=== PATIENT | male | born 1940 | race Caucasian/White ===

== ENCOUNTER 2018-05-26 12:20 | Inpatient (IN) | payer MEDICARE ==
[2018-05-26 12:42] LABS: INR-International Normal Ratio 1.1; PTT 24.2 SEC (22.9-36.1); Prothrombin Time 13.8 SEC (12.0-14.7)
[2018-05-26 12:55] LABS: #Eosinphils 0.2 thou/uL (0.0-0.7); #Lymphocytes 1.4 thou/uL (1.20-3.40); #Monocytes 0.4 thou/uL (0.11-0.59); %Eosinophils 1.8 % (0.0-10.0); %Lymphocytes 12.7 % (21.0-51.0); %Monocytes 3.4 % (0.0-10.0); %Neutrophils 82.2 % (42.0-75.0); Hemoglobin 15.5 g/dL (14.0-18.0); Mean Corpuscular HGB CONC 32.8 g/dL (32.0-36.0); Mean Corpuscular Hemoglobin 32.5 pg (27.0-31.0); Mean Corpuscular Volume 99.2 fL (78.0-98.0); Mean Platelet Volume 8.3 fL (7.4-10.4); Platelet Count 175 thou/uL (130-400); RBC Distribution Width 13.1 % (11.5-14.5); Red Blood Cell (RBC) Count 4.77 mill/uL (4.70-6.10)
[2018-05-26] MEDS ORDERED: ISOVUE-370 76%-LOCM 1 ML ONE (15:21)
[2018-05-26 17:05] VITALS: BMI 18.8
[2018-05-26] MEDS: Nicotine 14 MG PATCH TD SCH (18:05)
[2018-05-26] MEDS ORDERED: Atorvastatin Calcium 40 MG TAB PO SCH (21:00)
[2018-05-26] MEDS: Heparin 5,000 UNITS/ML VIAL SC SCH (21:19)
--- NOTE | 2018-05-27 00:30 | HP ---
CHIEF COMPLAINT: Right-sided weakness. HISTORY OF PRESENT ILLNESS: The patient is a 78-year-old male with history of stroke with some left peripheral vision which was affected, who presented to the hospital, with complaints of sudden onset of right-sided weakness. The patient stated that this morning, he noticed that his right arm felt weak and he dropped his dentures. He also complained of some shakiness in both hands, right worse than the left. The patient also stated that he was confused. Family stated the patient was confused and was unable to get words out and also had a right facial droop. The patient at this time did come into the [facility] in which he had a CT head, which was negative. However, due to his allergy to iodine, he was given a prep and was transferred here. He did undergo a CTA which did not indicate any acute abnormalities at this time. His NIH score was 2. PAST MEDICAL HISTORY: He has a history of: 1. CAD, status post CABG. 2. COPD. 3. Hyperlipidemia. 4. Hypothyroidism. 5. CVA. PAST SURGICAL HISTORY: The patient has had a surgical history of: 1. CABG, four vessel. 2. Thyroidectomy. 3. The patient also has an ICD placed. SOCIAL HISTORY: The patient denies any alcohol use. However, he continues to smoke half a pack a day. Denies any drug use. He is a full code. ALLERGIES: HE IS ALLERGIC TO IODINE AND VICODIN. MEDICATIONS: The patient does not have the whole list. However, he takes: 1. Levothyroxine 137 mcg daily. 2. Clopidogrel 75 mg daily. 3. Atorvastatin 40 mg daily. 4. Aspirin 81 mg daily. REVIEW OF SYSTEMS: All negative except for the ones mentioned above in the HPI. FAMILY HISTORY: Parents had a history of heart disease and strokes. PHYSICAL EXAMINATION: VITAL SIGNS: Are as the following: Temperature of 98.7, oxygen 100% on room air, respirations 16, pulse of 65, blood pressure of 130/67. GENERAL: He is awake, alert, and oriented x3. Does not appear in any distress. CV: S1 and S2 present. No murmurs, rubs, or gallops. LUNGS: Mild expiratory wheezing to bilateral upper lung area. ABDOMEN: Soft and nontender. Bowel sounds are present x2. NEUROVASCULAR: He has got 4/5 bilateral upper extremity and 5/5 bilateral lower extremity. Sensation is intact, upper bilateral upper and bilateral lower. Ihlhaf-wi-zvsu, byso-wv-zvsw intact. According to the patient's family, his speech has dramatically improved. LABORATORY RESULTS: Are as following: WBCs of 11.0, hemoglobin of 15.5, hematocrit of 47.3, platelets of 175. Sodium of 139, potassium of 4.3, BUN of 19, creatinine 0.97, glucose of 82. His total bilirubin was 1.3. Troponin x1 negative. He did have a CTA that indicated no hemodynamically significant stenosis involving the carotid system. No intracranial occlusive disease noted. He also had a CT brain, which indicated an old infarct in the right posterior cerebellar artery territory. No intracranial acute abnormality noted. ASSESSMENT AND PLAN: The patient is a 78-year-old male, who presents to the hospital with complaints of right-sided weakness. 1. Stroke. The patient's NIH when he came into the ER was 2. His symptoms improved. Family at bedside states that he appears much improved than when he came into the hospital. CTA and CT head negative. We will do an echocardiogram and MRI. We will also get Neurology to see this patient. I have advised this patient against smoking. I will put him on a nicotine patch while he is here. I will check a lipid panel and put him on a statin. He is already on aspirin and Plavix and will continue that. 2. Chronic obstructive pulmonary disease, compensated. We will continue some DuoNeb. 3. Coronary artery disease. He is going to be continued on statin, aspirin and Plavix. I will hold any antihypertensive for now. 4. Hypothyroidism. We will continue his home medication. 5. Deep venous thrombosis prophylaxis. We will put the patient on sequential compressive devices. Job ID: [id number]
[2018-05-27 05:58] LABS: #Lymphocytes 1.3 thou/uL (1.20-3.40); #Monocytes 0.7 thou/uL (0.11-0.59); #Neutrophils 11.2 thou/uL (1.40-6.50); %Basophils 0.1 % (0.0-1.0); %Eosinophils 0.3 % (0.0-10.0); %Lymphocytes 9.7 % (21.0-51.0); %Monocytes 5.3 % (0.0-10.0); %Neutrophils 84.6 % (42.0-75.0); Hemoglobin 14.6 g/dL (14.0-18.0); Mean Corpuscular HGB CONC 33.7 g/dL (32.0-36.0); Mean Corpuscular Hemoglobin 33.1 pg (27.0-31.0); Mean Corpuscular Volume 98.5 fL (78.0-98.0); Mean Platelet Volume 7.9 fL (7.4-10.4); Platelet Count 173 thou/uL (130-400); RBC Distribution Width 12.8 % (11.5-14.5); Red Blood Cell (RBC) Count 4.41 mill/uL (4.70-6.10); White Blood Cell (WBC) Count 13.3 thou/uL (4.8-10.8)
[2018-05-27] MEDS ORDERED: Levothyroxine Sodium 112 MCG TAB PO SCH ×2 (06:00)
[2018-05-27] MEDS ORDERED: Levothyroxine Sodium 25 MCG TAB PO SCH (06:00)
[2018-05-27 06:24] LABS: ALT (SGPT) 30 U/L (8-55); AST (SGOT) 21 U/L (5-34); Albumin 3.8 g/dL (3.4-4.8); Alkaline Phosphatase 72 U/L (40-150); Anion Gap 12 mmol/L (10-20); BUN (Urea Nitrogen) 19 mg/dL (8.4-25.7); Bilirubin, Total 1.1 mg/dL (0.2-1.2); Calc. Creatinine Clearance 71 mL/min (70-130); Carbon Dioxide 23 mmol/L (23-31); Chloride 105 mmol/L (98-107); Cholesterol 149 mg/dl (< 200 Desired); Estimated GFR-MDRD 88; Globulin 2.3 g/dL (2.4-3.5); Glucose 109 mg/dL (83-110); HDL Cholesterol 73 mg/dL (>60 Neg Risk); LDL Cholesterol, Calculated 64 mg/dL; Potassium 4.5 mmol/L (3.5-5.1); Protein, Total 6.1 g/dL (5.8-8.1); Sodium 135 mmol/L (136-145); Triglycerides 60 mg/dL (Less than 150)
[2018-05-27] MEDS ORDERED: predniSONE 20 MG TAB PO SCH (08:00)
[2018-05-27] MEDS: Heparin 5,000 UNITS/ML VIAL SC SCH (08:46)
[2018-05-27] MEDS ORDERED: Atorvastatin Calcium 40 MG TAB PO SCH (09:00)
[2018-05-27] MEDS ORDERED: Clopidogrel Bisulfate 75 MG TAB PO SCH (09:00)
[2018-05-27] MEDS ORDERED: Prevnar 13-Val Conj/PF 0.5 ML SYRINGE IM ONE (09:00)
[2018-05-27] MEDS ORDERED: Aspirin 325 mg Enteric Coated Tablet PO SCH (09:00)
[2018-05-27] MEDS ORDERED: Docusate 100 MG CAP PO PRN (14:41)
[2018-05-27] MEDS: Nicotine 14 MG PATCH TD SCH (15:26)
--- NOTE | 2018-05-27 16:05 | PDOC.PN ---
- Subjective Encounter Start Date: 05/27/18 Encounter Start Time: 12:15 Subjective: pt up ambulating, he had 4 runs of vtach -: electrolytes normal - Objective Vital Signs & Weight: Vital Signs (12 hours) Temp Pulse Pulse Pulse Resp BP BP 05/27/18 11:35 97.7 F 63 16 05/27/18 10:21 60 70 116/71 137/72 05/27/18 08:15 05/27/18 07:45 98.6 F 59 L 16 05/27/18 07:25 61 16 BP Pulse Ox 05/27/18 11:35 118/72 95 05/27/18 10:21 05/27/18 08:15 97 05/27/18 07:45 115/67 97 05/27/18 07:25 98 Weight Admit Weight 155 lb 3.2 oz Weight 155 lb 3.2 oz I&O: 05/26/18 05/27/18 05/28/18 06:59 06:59 06:59 Intake Total 600 Balance 600 Result Diagrams: 05/27/18 05:45 05/27/18 05:45 Phys Exam - Physical Examination Neck: no nodes, no JVD, supple, full ROM Respiratory: no wheezing, no rales, no rhonchi, wheezing present, clear to auscultation bilateral Cardiovascular: RRR, no significant murmur, no rub, gallop, irregular Gastrointestinal: soft, non-tender, no distention, positive bowel sounds mild slurred speech Dx/Plan (1) CVA (cerebral vascular accident) Code(s): I63.9 - CEREBRAL INFARCTION, UNSPECIFIED Status: Acute (2) CAD (coronary artery disease) Code(s): I25.10 - ATHSCL HEART DISEASE OF [place] CORONARY ARTERY W/O ANG PCTRS Status: Acute (3) Hyperlipidemia Code(s): E78.5 - HYPERLIPIDEMIA, UNSPECIFIED Status: Acute - Plan pt's echo indicated global depression, pt had 4 beats of vtach -: he follow up with cardiology will consult. will monitor overnight -: possible discharge in am. neurology to evalute pt. unable to have -: mri due to AICD * . Review of Systems - Review of Systems Respiratory: negative: Cough, Dry, Shortness of Breath, Hemoptysis, SOB with Excertion, Pleuritic Pain, Sputum, Wheezing Cardiovascular: negative: chest pain, palpitations, orthopnea, paroxysmal nocturnal dyspnea, edema, light headedness, other Gastrointestinal: negative: Nausea, Vomiting, Abdominal Pain, Diarrhea, Constipation, Melena, Hematochezia, Other Genitourinary: negative: Dysuria, Frequency, Incontinence, Hematuria, Retention , Other - Medications/Allergies Allergies/Adverse Reactions: Allergies Allergy/AdvReac Type Severity Reaction Status Date / Time Iodinated Contrast- Oral and Allergy Verified 05/26/18 16:49 IV Dye Medications: Current Medications Albuterol/Ipratropium (Duoneb) 3 ml NEB [id number] PRN PRN Reason: SOB &/or Wheezing Last Admin: 05/27/18 07:25 Dose: 3 ml Aspirin (Ecotrin) 325 mg PO DAILY [facility] Last Admin: 05/27/18 08:47 Dose: 325 mg Atorvastatin Calcium (Lipitor) 80 mg PO QAM [facility] Last Admin: 05/27/18 08:46 Dose: 80 mg Clopidogrel Bisulfate (Plavix) 75 mg PO DAILY [facility] Last Admin: 05/27/18 08:46 Dose: 75 mg Docusate Sodium (Colace) 100 mg PO BIDPRN PRN PRN Reason: Constipation Last Admin: 05/27/18 15:25 Dose: 100 mg Heparin Sodium (Porcine) (Heparin) 5,000 units SC Q12HR [facility] Last Admin: 05/27/18 08:46 Dose: 5,000 units Levothyroxine Sodium (Synthroid) 112 mcg PO 0600 [facility] Last Admin: 05/27/18 06:21 Dose: 112 mcg Levothyroxine Sodium (Synthroid) 25 mcg PO 0600 [facility] Last Admin: 05/27/18 06:21 Dose: 25 mcg Nicotine (Nicoderm Patch) 14 mg TD Q24HR [facility] Last Admin: 05/27/18 15:26 Dose: Not Given Prednisone (Prednisone) 10 mg PO QAM-WM [facility] Last Admin: 05/27/18 08:46 Dose: 10 mg Sodium Chloride (Flush - Normal Saline) 10 ml IVF PRN PRN PRN Reason: Saline Flush
[2018-05-27 16:25] VITALS: BP 105/56; TEMP 98.6
[2018-05-27] MEDS ORDERED: Aggrenox 200-25mg CAP PO SCH (21:00)
--- NOTE | 2018-05-28 03:50 | DIS ---
DATE OF ADMISSION: 05/26/2018 DATE OF DISCHARGE: 05/27/2018 DISCHARGE DIAGNOSES: 1. Cerebrovascular accident. 2. Hyperlipidemia. 3. Hypertension. 4. Smoking history. 5. Coronary artery disease. HOSPITAL COURSE: The patient is a 78-year-old male, who initially presented to the hospital with complaints of right-sided facial droop and right-sided weakness. The patient has a history of previous stroke with deficits of left peripheral eye, limited vision to the left peripheral eye. The patient stated that initially his symptoms started sudden onset, slurred speech, right-sided facial droop with right-sided weakness. The patient at this time was brought into the hospital for further evaluation. He was initially evaluated at [place], underwent a CT head, which was negative. He also underwent a CTA; however, was prepped for contrast and then underwent a CTA which indicated no hemodynamically significant stenosis involving the carotid systems of either side. No central arterial intracranial occlusive disease. The patient at this time was unable to undergo an MRI due to his AICD. The patient also had about 4 beats of ventricular tachycardia. Also, electrolytes were checked, they were normal. He also underwent an echocardiogram which indicated an EF of 40%. At this time, I did speak with Cardiology and upon reviewing his records, his previous echocardiogram actually indicated an EF of 20% to 30%, so this one with a significant improvement. We did interrogate his AICD and the patient will follow up with Dr. Jeffries as an outpatient. PHYSICAL EXAMINATION: VITAL SIGNS: As of the following; temperature of 98.6, pulse 72, respirations 16, O2 saturation 95% on room air, blood pressure 105/56. GENERAL: He is awake, alert, and oriented x3. Does not appear in distress. CV: S1, S2 present. No murmurs, rubs, or gallops. ABDOMEN: Soft and nontender. Bowel sounds are present x2. NEUROVASCULAR: His deficits neurovascular alcaraz were back to his baseline except for his speech which was mildly slurred per family. The patient was seen by Neurology, recommended Aggrenox instead of aspirin and the Plavix. HOME MEDICATIONS: His home medications will be as of the following; 1. He is going to be on Lasix 20 mg daily. 2. Digoxin 125 mcg daily. 3. Carvedilol 0.5 p.o. daily. 4. Rosuvastatin 20 mg daily. 5. Levothyroxine 125 mcg daily. 6. Aggrenox 1 cap p.o. daily. We did do a trial in the hospital, he had no headaches. I did advise the patient that if his insurance will not cover it or if he is having any trouble with it, I would recommend the patient to go back on the aspirin and the Plavix. 7. Also, prednisone 10 mg daily for his COPD. Again, the patient will be discharged home. He will follow up with PCP. He will follow up with Cardiology. Job ID: [id number]
[2018-05-28] MEDS ORDERED: Aggrenox 200-25mg CAP PO SCH (09:00)
--- NOTE | 2018-05-28 11:31 | PQF ---
ARI ESCOBAR CHARISSE DOMINGUEZ [id number] [facility] [id number] CLINICAL DOCUMENTATION IMPROVEMENT CLARIFICATION FORM: ICD-10 Updated PLEASE DO AN ADDENDUM TO THE PROGRESS NOTE WITH ANY DOCUMENTATION UPDATES OR ADDITIONS AND CARRY THROUGH TO DC SUMMARY. THANK YOU. DATE: 05/28/18 ATTN: Dr. Boswell Please exercise your independent, professional judgment in responding to the clarification form. Clinical indicators are provided on the bottom of this form for your review Please check appropriate box(s): [ ] Hemiplegia Specify: [ ] Non dominant side [ ] Dominant side Status: [ ] Complete [ ] Incomplete [ ] Right sided weakness due to stroke Specify: [ ] Non dominant side [ X] Dominant side [ ] Other diagnosis [ ] Unable to determine In addition, please specify: Present on Admission (POA): [ X ] Yes [ ] No [ ] Unable to determine CLINICAL INDICATORS - SIGNS / SYMPTOMS / LABS H&P: sudden onset of Right sided weakness; / BUE RISK FACTORS Stroke with history of previous stroke per H&P TREATMENT: Assisted with ambulation per fall precaution orders 05/26 (This form is maintained as a part of the permanent medical record) 2014 [employer], [place]. All Rights Reserved Albertina Gonzalez RN, BSN, CCDS [email or web address]
--- NOTE | 2018-05-28 15:02 | CT ---
CT angiogram head CT angiogram neck: 05/26/2018 COMPARISON: None HISTORY: Dysarthria and upper extremity weakness, acute stroke protocol TECHNIQUE: Axial CT imaging from vertex through lung apices with IV contrast using CT angiogram aracelis col. Coronal and sagittal 3-D reformatted imaging obtained. FINDINGS: There are significant bilateral upper lobe subpleural and centrilobular emphysematous valdovinos es. Midline sternotomy wires are present. Transvenous AICD present. Imaged paranasal sinuses/mastoid air cells demonstrate no acute findings. Tonsillar pillars, epiglott is and epiglottic fat, hyoid bone, thyroid cartilage, cricoid cartilage, and level of the glottis nico ear unremarkable. There is atherosclerotic calcification of the aortic arch. Origin of innominate artery, right subclav tamir artery, right vertebral artery, right common carotid artery, left common carotid artery, left sub clavian artery, and left vertebral artery unremarkable. The left vertebral artery is dominant. Right vertebral artery is hypoplastic, especially distally jus t proximal to the origin of the basilar artery. The basilar artery and its branches appear patent. Th ere is a patent left posterior communicating artery. The posterior cerebral artery is patent bilatera lly with a hypoplastic and/or aplastic left P1 segment. No saccular aneurysm, high-grade stenosis, or vascular occlusion is seen involving the posterior circulation. There is mild calcified plaque involving the distal aspect of bilateral common carotid arteries. No h emodynamically significant stenosis is seen on the basis of NASCET criteria involving the internal ca rotid artery or the common carotid artery on either side. There is mild atherosclerotic calcification of the cavernous carotid arteries bilaterally. The M1 seg ment is patent bilaterally. MCA bifurcation and proximal M2 branches appear grossly unremarkable. The A1 segment, the anterior communicating artery, and the distal MATTEO branches appear grossly unremar kable. No lymphadenopathy is noted within the neck. No acute osseous abnormality. Scattered degenerative changes are noted involving the cervical spine with multilevel facet hypertrop hy and multilevel disc space narrowing with posterior osteophyte formation at C4-5 and C5-6. IMPRESSION: No hemodynamically significant stenosis seen involving the carotid system on either side. No central arterial intracranial occlusive disease. Results called to Dr. Sousa at 12:43 PM hours 05/26/2018 Transcribed Date/Time: 05/28/2018 3:01 PM
== END 2018-05-27 19:19 | disposition home or self-care (01) | DRG 65 ==
LOC: ERS 12:20 → 2SE 14:40
PROVIDERS: ADMIT Internal Medicine; ATTEND Internal Medicine
DX: I63.9 Cerebral infarction, unspecified (principal); G81.91 Hemiplegia, unspecified affecting right dominant side; I47.2 Ventricular tachycardia; I25.10 Atherosclerotic heart disease of native coronary artery without angina pectoris; E78.5 Hyperlipidemia, unspecified; R47.81 Slurred speech; R20.0 Anesthesia of skin; F17.210 Nicotine dependence, cigarettes, uncomplicated; R29.702 NIHSS score 2; J44.9 Chronic obstructive pulmonary disease, unspecified; E89.0 Postprocedural hypothyroidism; Z79.899 Other long term (current) drug therapy; Z95.810 Presence of automatic (implantable) cardiac defibrillator; Z86.73 Personal history of transient ischemic attack (TIA), and cerebral infarction without residual deficits; Z79.02 Long term (current) use of antithrombotics/antiplatelets; Z79.82 Long term (current) use of aspirin; Z90.89 Acquired absence of other organs; Z90.49 Acquired absence of other specified parts of digestive tract; Z95.1 Presence of aortocoronary bypass graft; Z91.041 Radiographic dye allergy status
CPT/HCPCS: 36415; 36416; 70496; 70498; 80053; 80061; 82550; 83036; 83735; 83880; 85025; 85610; 85730; 90471; 90670; 93005; 93306; 94640; G0009; J1644; J7620; Q9966

== ENCOUNTER 2019-12-19 14:42 | Inpatient (IN) | payer MEDICARE ==
[2019-12-19 19:36] VITALS: BMI 19.6
[2019-12-19 20:38] LABS: #Basophils 0.1 thou/uL (0.0-0.2); #Eosinphils 0.4 thou/uL (0.0-0.7); #Lymphocytes 1.8 thou/uL (1.20-3.40); #Monocytes 0.7 thou/uL (0.11-0.59); #Neutrophils 5.7 thou/uL (1.40-6.50); %Basophils 0.6 % (0.0-1.0); %Eosinophils 4.4 % (0.0-10.0); %Lymphocytes 20.7 % (21.0-51.0); %Monocytes 8.4 % (0.0-10.0); %Neutrophils 65.8 % (42.0-75.0); Hemoglobin 15.4 g/dL (14.0-18.0); Mean Corpuscular HGB CONC 35.3 g/dL (32.0-36.0); Mean Corpuscular Hemoglobin 33.7 pg (27.0-31.0); Mean Corpuscular Volume 95.4 fL (78.0-98.0); Platelet Count 225 thou/uL (130-400); RBC Distribution Width 12.1 % (11.5-14.5); Red Blood Cell (RBC) Count 4.57 mill/uL (4.70-6.10); White Blood Cell (WBC) Count 8.7 thou/uL (4.8-10.8)
--- NOTE | 2019-12-19 20:47 | RAD ---
EXAM: CHEST TWO VIEWS 12/19/2019 8:43 PM HISTORY: Baseline chest radiograph COMPARISON: Prior exam dated March 15, 2018 FINDINGS: Lungs: Severe COPD changes stable Heart: Normal; postprocedural change of CABG and multi lead AICD are stable. Pulmonary Vessels: Normal. Costophrenic Angles: Clear. Pneumothorax: None. Osseous Structures: Mild compression abnormality of L1 is stable. There is scattered degenerative an d osteoarthritic change present. Additional Findings: None. IMPRESSION: No significant acute intrathoracic disease.
[2019-12-19 20:57] LABS: ALT (SGPT) 17 U/L (8-55); AST (SGOT) 21 U/L (5-34); Albumin 3.9 g/dL (3.4-4.8); Alkaline Phosphatase 95 U/L (40-110); Anion Gap 14 mmol/L (10-20); BUN (Urea Nitrogen) 17 mg/dL (8.4-25.7); Bilirubin, Total 1.2 mg/dL (0.2-1.2); Calc. Creatinine Clearance 72 mL/min (70-130); Calcium 9.2 mg/dL (7.8-10.44); Carbon Dioxide 23 mmol/L (23-31); Chloride 105 mmol/L (98-107); Estimated GFR-MDRD 87; Globulin 2.7 g/dL (2.4-3.5); Glucose 95 mg/dL (83-110); Potassium 3.9 mmol/L (3.5-5.1); Protein, Total 6.6 g/dL (5.8-8.1); Sodium 138 mmol/L (136-145)
[2019-12-19] MEDS ORDERED: Albuterol Sulfate 2.5 mg/3 ml Neb NEB PRN (21:47)
[2019-12-19] MEDS: Albuterol Sulfate 2.5 mg/3 ml Neb NEB PRN (22:11)
--- NOTE | 2019-12-19 22:25 | PDOC.HHP ---
Hospitalist HPI - History of Present Illness Defib malfunction History of Present Illness: ADMISSION DATE: 12/19/2019 TIME OF ASSESSMENT: 1900 PRIMARY CARE PHYSICIAN: Dr. Guaman CHIEF COMPLAINT: Defib malfunction HPI: Mr. Zelaya is a pleasant 79-year-old gentleman who came in as a direct admission due to receiving notification that there was a malfunction with his defib. The patient states a loud alarm worn off from the day for bed at 4 AM this morning. He received a call notifying him that one of the wires needed to be replaced. Direct admission to the hospital was arranged. Patient states he has felt well and is without any complaints. Has not had any chest pain palpitations or lightheadedness. Reports his only current issues are associated with allergies. This causes postnasal drip which then causes difficulty with his breathing at night that is usually helped with his nebulizer treatments. He does have a history of COPD. He has a chronic cough that is productive for clear sputum. Denies any hemoptysis or purulent sputum. He no longer smokes since May 2019. Patient is known to Dr. Mcgee. States he had the defib placed and 2007. Last echo on file is from 05/27/2018 at which time he was noted to have overall mildly depressed left ventricular function. EF of 40 to 45%. Defibrillator wire seen in the right ventricle at that time. Left atrium mildly dilated. Mild MR present as well as mild TR. Aortic valve appeared sclerotic. Patient states his following recent days. Denies having any fever chills or sweats. Denies any headaches or dizziness. No changes with his appetite. Denies nausea or vomiting. Reports having regular bowel movements and denies any urinary symptoms. PAST MEDICAL HISTORY: 1. CVA 2. Hyperlipidemia 3. Hypertension 4. History of tobacco use quit in May 2019 5. CAD 6. COPD 7. Hypothyroidism PAST SURGICAL HISTORY: 1. Tonsillectomy 2. Appendectomy 3. CABG x4, stent x1 4. AICD placement 5. Thyroidectomy SOCIAL HISTORY: Patient is fully independent. He lives with his . Previously smoked half a pack a day but quit in May 2019. Denies any alcohol consumption or drug use. FAMILY HISTORY: Parents had history of heart disease and strokes. ALLERGIES: Codeine and iodine contrast CURRENT MEDICATIONS: Meloxicam 7.5 mg p.o. daily Ventolin nebulizer Aspirin 325 mg p.o. daily Clopidogrel 75 mg p.o. daily Digoxin 125 mcg p.o. daily Ezetimibe 10 mg p.o. daily Furosemide 20 mg p.o. every 2 days Ipratropium bromide nasal spray Synthroid 112 mcg p.o. daily Montelukast 10 mg p.o. daily Hospitalist ROS - Medication Medications: Active Medications Generic Name Dose Route Start Last Admin Trade Name Freq PRN Reason Stop Dose Admin Albuterol Sulfate 2.5 mg 12/19/19 22:05 12/19/19 22:11 Albuterol Sulfate 2.5 Mg/3 Ml Neb NEB 2.5 mg Q6HR PRN Administration Wheezing - Exam General Appearance: NAD, awake alert General - other findings: Vital signs: Temp 97.8, HR 82, RR 16, O2 sat 99% on room air, BP 160/60. Eye: PERRL, anicteric sclera ENT: normocephalic atraumatic, moist mucosa Neck: supple, symmetric, no lymphadenopathy Heart: RRR, normal peripheral pulses Respiratory: CTAB, no rales, no ronchi, normal chest expansion, no tachypnea, wheezes (mild expiratory wheezes) Gastrointestinal: soft, non-tender, no guarding, no rigidity Extremities - other findings: trace LE edema Skin: normal turgor, no rashes Neurological: cranial nerve grossly intact, normal sensation to touch, no weakness, no focal deficits, no new deficit Musculoskeletal: normal tone, normal strength, no muscle wasting Psychiatric: normal affect, normal behavior, A&O x 3 Hospitalist Results - Labs Result Diagrams: 12/19/19 20:20 12/19/19 20:20 Lab results: WBC 8.7 thou/uL (4.8-10.8) 12/19/19 20:20 Hgb 15.4 g/dL (14.0-18.0) 12/19/19 20:20 Hct 43.6 % (42.0-52.0) 12/19/19 20:20 MCV 95.4 fL (78.0-98.0) 12/19/19 20:20 Plt Count 225 thou/uL (130-400) 12/19/19 20:20 Neutrophils % 65.8 % (42.0-75.0) 12/19/19 20:20 Sodium 138 mmol/L (136-145) 12/19/19 20:20 Potassium 3.9 mmol/L (3.5-5.1) 12/19/19 20:20 Chloride 105 mmol/L (98-107) 12/19/19 20:20 Carbon Dioxide 23 mmol/L (23-31) 12/19/19 20:20 BUN 17 mg/dL (8.4-25.7) 12/19/19 20:20 Creatinine 0.85 mg/dL (0.7-1.3) 12/19/19 20:20 Glucose 95 mg/dL (83-110) 12/19/19 20:20 Calcium 9.2 mg/dL (7.8-10.44) 12/19/19 20:20 Total Bilirubin 1.2 mg/dL (0.2-1.2) 12/19/19 20:20 AST 21 U/L (5-34) 12/19/19 20:20 ALT 17 U/L (8-55) 12/19/19 20:20 Alkaline Phosphatase 95 U/L (40-110) 12/19/19 20:20 Serum Total Protein 6.6 g/dL (5.8-8.1) 12/19/19 20:20 Albumin 3.9 g/dL (3.4-4.8) 12/19/19 20:20 Hospitalist H&P A/P - Problem (1) AICD problem Code(s): T82.9XXA - UNSP COMP OF CARDIAC AND VASCULAR PROSTH DEV/GRFT, INIT; Z95.810 - PRESENCE OF AUTOMATIC (IMPLANTABLE) CARDIAC DEFIBRILLATOR Status: Acute Assessment and Plan: Cardiac monitoring. Consult EP. NPO after midnight. Obtain baseline EKG (2) Hypertension Code(s): I10 - ESSENTIAL (PRIMARY) HYPERTENSION Status: Chronic Assessment and Plan: Monitor BP. Resume home meds once verified. (3) Hypothyroidism Code(s): E03.9 - HYPOTHYROIDISM, UNSPECIFIED Status: Chronic Assessment and Plan: Check TSH with AM labs. Resume home meds once verified. (4) COPD (chronic obstructive pulmonary disease) Status: Chronic Assessment and Plan: Resume home nebs/inhalers. Obtain baseline CXR (5) CAD (coronary artery disease) Code(s): I25.10 - ATHSCL HEART DISEASE OF [place] CORONARY ARTERY W/O ANG PCTRS Status: Chronic Assessment and Plan: Resume home meds once verified. (6) Hyperlipidemia Code(s): E78.5 - HYPERLIPIDEMIA, UNSPECIFIED Status: Chronic Assessment and Plan: Resume home meds once verified. (7) History of CVA (cerebrovascular accident) Code(s): Z86.73 - PRSNL HX OF TIA (TIA), AND CEREB INFRC W/O RESID DEFICITS Status: Chronic - Plan Plan: FULL CODE STATUS. DVT Prophylaxis: Hold pharmacoprophylaxis for possible procedure. Ambulatory. Walking program consulted. Case discussed with attending who agrees with plan as above.
[2019-12-20 04:52] LABS: #Eosinphils 0.5 thou/uL (0.0-0.7); #Lymphocytes 1.8 thou/uL (1.20-3.40); #Monocytes 0.7 thou/uL (0.11-0.59); #Neutrophils 4.8 thou/uL (1.40-6.50); %Basophils 0.4 % (0.0-1.0); %Eosinophils 5.9 % (0.0-10.0); %Lymphocytes 23.6 % (21.0-51.0); %Monocytes 8.8 % (0.0-10.0); %Neutrophils 61.2 % (42.0-75.0); Mean Corpuscular HGB CONC 34.8 g/dL (32.0-36.0); Mean Corpuscular Hemoglobin 33.3 pg (27.0-31.0); Mean Corpuscular Volume 95.6 fL (78.0-98.0); Mean Platelet Volume 7.9 fL (7.4-10.4); Platelet Count 214 thou/uL (130-400); RBC Distribution Width 12.2 % (11.5-14.5); White Blood Cell (WBC) Count 7.8 thou/uL (4.8-10.8)
[2019-12-20 05:12] LABS: Anion Gap 15 mmol/L (10-20); BUN (Urea Nitrogen) 20 mg/dL (8.4-25.7); Calc. Creatinine Clearance 78 mL/min (70-130); Calcium 8.8 mg/dL (7.8-10.44); Carbon Dioxide 21 mmol/L (23-31); Chloride 107 mmol/L (98-107); Estimated GFR-MDRD Greater than 90; Glucose 93 mg/dL (83-110); Potassium 3.8 mmol/L (3.5-5.1); Sodium 139 mmol/L (136-145)
[2019-12-20] MEDS: Levothyroxine Sodium 112 MCG TAB PO SCH (05:52)
[2019-12-20] MEDS: Albuterol Sulfate 2.5 mg/3 ml Neb NEB PRN ×2 (06:18→20:33)
[2019-12-20] MEDS ORDERED: Furosemide 20 MG TAB PO SCH (09:00)
[2019-12-20] MEDS: Digoxin 0.125 MG TAB PO SCH (09:29)
[2019-12-20] MEDS: Aspirin 325 mg Enteric Coated Tablet PO SCH (09:29)
[2019-12-20] MEDS: Ezetimibe 10 MG TAB PO SCH (09:29)
[2019-12-20] MEDS: Clopidogrel Bisulfate 75 MG TAB PO SCH (09:31)
[2019-12-20] MEDS: Montelukast Sodium 10 mg Tablet PO SCH (09:31)
[2019-12-20] MEDS: Ipratropium Bromide 0.06% Nasal Inhaler 15ml EA NARE SCH ×3 (09:58→20:04)
--- NOTE | 2019-12-20 12:39 | CON ---
DATE OF CONSULTATION: HISTORY OF PRESENT ILLNESS: The patient is an 79-year-old gentleman, who presents after his defibrillator was malfunctioning. The patient has a long history of coronary artery disease. The patient is status post coronary artery bypass graft surgery x4. He also has previously had placement of AICD. The patient was in his usual state of health when he started noticing ringing sensation from his defibrillator has been in persistent since yesterday. The patient states his defibrillator did not fire. PAST MEDICAL HISTORY: 1. Coronary artery disease. 2. Cardiomyopathy. 3. Hypertension. 4. Dyslipidemia. 5. COPD. 6. History of CVA. PAST SURGICAL HISTORY: Coronary artery bypass surgery, tonsillectomy, appendectomy, and thyroidectomy. SOCIAL HISTORY: Former smoker. ALLERGIES: CODEINE AND IODINE. MEDICATIONS: See nursing list. FAMILY HISTORY: Positive family history of heart disease. PHYSICAL EXAMINATION: GENERAL: Thin gentleman, in no acute distress. VITAL SIGNS: Blood pressure 110/56. NECK: Showed no jugular venous distention. LUNGS: Diminished breath sounds bilateral. HEART: Regular rate and rhythm. Normal S1 and S2. ABDOMEN: Nondistended. EXTREMITIES: Show no edema. VASCULAR: Radial pulse 2+. LABORATORY DATA: Sodium 139, potassium 3.8, chloride 107, bicarbonate 21, BUN 20, creatinine 0.78, and glucose is 93. White blood cell count is 7.8, hemoglobin 14.0, hematocrit 40.1, and platelets are 214. EKG normal sinus rhythm with a nonspecific ST-T wave abnormality. IMPRESSION: 1. Malfunctioning defibrillator. 2. History of coronary artery bypass surgery. 3. History of cerebrovascular accident. 4. Chronic obstructive pulmonary disease. 5. Tobacco abuse. PLAN: This gentleman presents with a malfunction of his defibrillator. We will need to undergo lead revision during this hospitalization. We will follow this patient with you. Job ID: [id number] [facility]
[2019-12-21] MEDS: Levothyroxine Sodium 112 MCG TAB PO SCH (05:27)
[2019-12-21] MEDS: Albuterol Sulfate 2.5 mg/3 ml Neb NEB PRN ×2 (06:29→19:43)
[2019-12-21] MEDS ORDERED: Furosemide 20 MG TAB PO SCH (09:00)
--- NOTE | 2019-12-21 09:07 | PDOC.HOSPP ---
- Subjective Encounter Date: 12/20/19 Encounter Time: 11:45 Subjective: pt up in bed no complains - Objective Vital Signs & Weight: Vital Signs (12 hours) Temp Pulse Resp BP Pulse Ox 12/21/19 07:20 98.4 F 67 12 104/60 94 L 12/21/19 06:29 73 20 12/21/19 03:33 97.7 F 69 16 105/55 L Weight Weight 161 lb 4.8 oz Result Diagrams: 12/20/19 04:29 12/20/19 04:29 Hospitalist ROS - Review of Systems Cardiovascular: denies: chest pain, palpitations, orthopnea, paroxysmal noc. dyspnea, edema, light headedness, other Gastrointestinal: denies: nausea, vomiting, abdominal pain, diarrhea, constipation, melena, hematochezia, other Genitourinary: denies: dysuria, frequency, incontinence, hematuria, retention, other - Medication Medications: Active Medications Generic Name Dose Route Start Last Admin Trade Name Freq PRN Reason Stop Dose Admin Albuterol Sulfate 2.5 mg 12/19/19 22:05 12/21/19 06:29 Albuterol Sulfate 2.5 Mg/3 Ml Neb NEB 2.5 mg Q6HR PRN Administration Wheezing Aspirin 325 mg 12/20/19 09:00 12/20/19 09:29 Aspirin 325 Mg Enteric Coated Tablet PO 325 mg DAILY RUBI Administration Clopidogrel Bisulfate 75 mg 12/20/19 09:00 12/20/19 09:31 Clopidogrel Bisulfate 75 Mg Tab PO 75 mg DAILY RUBI Administration Digoxin 0.125 mg 12/20/19 09:00 12/20/19 09:29 Digoxin 0.125 Mg Tab PO 0.125 mg DAILY RUBI Administration Ezetimibe 10 mg 12/20/19 09:00 12/20/19 09:29 Ezetimibe 10 Mg Tab PO 10 mg DAILY RUBI Administration Ipratropium [place] 0 ml 12/20/19 09:00 12/20/19 20:04 Ipratropium [place] 0.06% Nasal Inhaler 15ml EA NARE 2 spr TID RUBI Administration Levothyroxine Sodium 112 mcg 12/20/19 06:00 12/21/19 05:27 Levothyroxine Sodium 112 Mcg Tab PO 112 mcg 0600 RUBI Administration Montelukast Sodium 10 mg 12/20/19 09:00 12/20/19 09:31 Montelukast Sodium 10 Mg Tablet PO 10 mg DAILY RUBI Administration - Exam Neck: negative: supple, symmetric, no JVD, no thyromegaly, no lymphadenopathy, no carotid bruit, JVD Heart: negative: RRR, no murmur, no gallops, no rubs, normal peripheral pulses, irregular, diminshed peripheral pulses, murmur present, II/IV, III/IV Respiratory: negative: CTAB, no wheezes, no rales, no ronchi, normal chest expansion, no tachypnea, normal percussion, rales, rhonchi, tachypneic, wheezes Gastrointestinal: negative: soft, non-tender, non-distended, normal bowel sounds, no palpable masses, no hepatomegaly, no splenomegaly, no bruit, no guarding, no rigidity, tender to palpation, distended, diminished bowl sounds, voluntary guarding Hosp A/P (1) AICD problem Code(s): T82.9XXA - UNSP COMP OF CARDIAC AND VASCULAR PROSTH DEV/GRFT, INIT; Z95 .810 - PRESENCE OF AUTOMATIC (IMPLANTABLE) CARDIAC DEFIBRILLATOR Status: Acute (2) History of CVA (cerebrovascular accident) Code(s): Z86.73 - PRSNL HX OF TIA (TIA), AND CEREB INFRC W/O RESID DEFICITS Status: Chronic (3) Hypertension Code(s): I10 - ESSENTIAL (PRIMARY) HYPERTENSION Status: Chronic (4) Hypothyroidism Code(s): E03.9 - HYPOTHYROIDISM, UNSPECIFIED Status: Chronic (5) CAD (coronary artery disease) Code(s): I25.10 - ATHSCL HEART DISEASE OF [place] CORONARY ARTERY W/O ANG PCTRS Status: Chronic (6) Hyperlipidemia Code(s): E78.5 - HYPERLIPIDEMIA, UNSPECIFIED Status: Chronic - Plan pt to get his pacemaker interrogated. cardiology consulted. Medically nothing to add.
[2019-12-21] MEDS: Ezetimibe 10 MG TAB PO SCH (09:18)
[2019-12-21] MEDS: Montelukast Sodium 10 mg Tablet PO SCH (09:18)
[2019-12-21] MEDS: Aspirin 325 mg Enteric Coated Tablet PO SCH (09:18)
[2019-12-21] MEDS: Digoxin 0.125 MG TAB PO SCH (09:18)
[2019-12-21] MEDS: Clopidogrel Bisulfate 75 MG TAB PO SCH (09:18)
[2019-12-21] MEDS: Ipratropium Bromide 0.06% Nasal Inhaler 15ml EA NARE SCH ×3 (09:19→19:41)
--- NOTE | 2019-12-21 10:49 | PDOC.HOSPP ---
- Subjective Encounter Date: 12/21/19 Encounter Time: 10:46 Subjective: pt up in bed no complains - Objective Vital Signs & Weight: Vital Signs (12 hours) Temp Pulse Resp BP Pulse Ox 12/21/19 09:18 76 12/21/19 07:20 98.4 F 67 12 104/60 94 L 12/21/19 06:29 73 20 12/21/19 03:33 97.7 F 69 16 105/55 L Weight Weight 161 lb 4.8 oz Result Diagrams: 12/20/19 04:29 12/20/19 04:29 Hospitalist ROS - Review of Systems Cardiovascular: denies: chest pain, palpitations, orthopnea, paroxysmal noc. dyspnea, edema, light headedness, other Gastrointestinal: denies: nausea, vomiting, abdominal pain, diarrhea, constipation, melena, hematochezia, other - Medication Medications: Active Medications Generic Name Dose Route Start Last Admin Trade Name Freq PRN Reason Stop Dose Admin Albuterol Sulfate 2.5 mg 12/19/19 22:05 12/21/19 06:29 Albuterol Sulfate 2.5 Mg/3 Ml Neb NEB 2.5 mg Q6HR PRN Administration Wheezing Aspirin 325 mg 12/20/19 09:00 12/21/19 09:18 Aspirin 325 Mg Enteric Coated Tablet PO 325 mg DAILY RUBI Administration Clopidogrel Bisulfate 75 mg 12/20/19 09:00 12/21/19 09:18 Clopidogrel Bisulfate 75 Mg Tab PO 75 mg DAILY RUBI Administration Digoxin 0.125 mg 12/20/19 09:00 12/21/19 09:18 Digoxin 0.125 Mg Tab PO 0.125 mg DAILY RUBI Administration Ezetimibe 10 mg 12/20/19 09:00 12/21/19 09:18 Ezetimibe 10 Mg Tab PO 10 mg DAILY RUBI Administration Furosemide 20 mg 12/21/19 09:00 12/21/19 09:19 Furosemide 20 Mg Tab PO 20 mg Q2DAYS RUBI Administration Ipratropium [place] 0 ml 12/20/19 09:00 12/21/19 09:19 Ipratropium [place] 0.06% Nasal Inhaler 15ml EA NARE 2 spr TID RUBI Administration Levothyroxine Sodium 112 mcg 12/20/19 06:00 12/21/19 05:27 Levothyroxine Sodium 112 Mcg Tab PO 112 mcg 0600 RUBI Administration Montelukast Sodium 10 mg 12/20/19 09:00 12/21/19 09:18 Montelukast Sodium 10 Mg Tablet PO 10 mg DAILY RUBI Administration - Exam Heart: negative: RRR, no murmur, no gallops, no rubs, normal peripheral pulses, irregular, diminshed peripheral pulses, murmur present, II/IV, III/IV Respiratory: negative: CTAB, no wheezes, no rales, no ronchi, normal chest ex pansion, no tachypnea, normal percussion, rales, rhonchi, tachypneic, wheezes Gastrointestinal: negative: soft, non-tender, non-distended, normal bowel sounds, no palpable masses, no hepatomegaly, no splenomegaly, no bruit, no guarding, no rigidity, tender to palpation, distended, diminished bowl sounds, voluntary guarding Extremities: negative: no cyanosis, no clubbing, no edema, 1+ LE edema, 2+ LE edema, clubbing Hosp A/P (1) AICD problem Code(s): T82.9XXA - UNSP COMP OF CARDIAC AND VASCULAR PROSTH DEV/GRFT, INIT; Z95.810 - PRESENCE OF AUTOMATIC (IMPLANTABLE) CARDIAC DEFIBRILLATOR Status: Acute (2) History of CVA (cerebrovascular accident) Code(s): Z86.73 - PRSNL HX OF TIA (TIA), AND CEREB INFRC W/O RESID DEFICITS Status: Chronic (3) Hypertension Code(s): I10 - ESSENTIAL (PRIMARY) HYPERTENSION Status: Chronic (4) Hypothyroidism Code(s): E03.9 - HYPOTHYROIDISM, UNSPECIFIED Status: Chronic (5) CAD (coronary artery disease) Code(s): I25.10 - ATHSCL HEART DISEASE OF [place] CORONARY ARTERY W/O ANG PCTRS Status: Chronic (6) Hyperlipidemia Code(s): E78.5 - HYPERLIPIDEMIA, UNSPECIFIED Status: Chronic - Plan pt to get his pacemaker interrogated. cardiology consulted. Medically nothing to add. 12/20 pt had PAT overnight. pt will be npo after midnight per cardiolgoy. pt's pacemaker has not been evaluated as of yet.
[2019-12-22 00:13] LABS: SARS-CoV-2 MS2 Positive; SARS-CoV-2 N Gene Negative; SARS-CoV-2 S Gene Negative; SARS-CoV-2 by NAA Not Detected (Not Detected); SARS-CoV-2 orf1ab Negative
[2019-12-22] MEDS: Levothyroxine Sodium 112 MCG TAB PO SCH (05:37)
[2019-12-22 08:11] VITALS: TEMP 97.5
[2019-12-22] MEDS: Montelukast Sodium 10 mg Tablet PO SCH (08:11)
[2019-12-22] MEDS: Digoxin 0.125 MG TAB PO SCH (08:11)
[2019-12-22] MEDS: Ezetimibe 10 MG TAB PO SCH (08:12)
[2019-12-22] MEDS: Clopidogrel Bisulfate 75 MG TAB PO SCH (08:12)
[2019-12-22] MEDS: Ipratropium Bromide 0.06% Nasal Inhaler 15ml EA NARE SCH ×2 (08:13→17:28)
[2019-12-22] MEDS: Albuterol Sulfate 2.5 mg/3 ml Neb NEB PRN (08:38)
[2019-12-22] MEDS: Aspirin 325 mg Enteric Coated Tablet PO SCH (10:44)
[2019-12-22 11:46] LABS: Anion Gap 13 mmol/L (10-20); BUN (Urea Nitrogen) 19 mg/dL (8.4-25.7); Calc. Creatinine Clearance 66 mL/min (70-130); Calcium 9.1 mg/dL (7.8-10.44); Carbon Dioxide 23 mmol/L (23-31); Chloride 105 mmol/L (98-107); Estimated GFR-MDRD 82; Glucose 90 mg/dL (83-110); Magnesium 1.8 mg/dL (1.6-2.6); Phosphorus 2.9 mg/dL (2.3-4.7); Potassium 4.2 mmol/L (3.5-5.1); Sodium 137 mmol/L (136-145)
--- NOTE | 2019-12-22 14:52 | PDOC.BPN ---
- Brief Progress Note Encounter Date: 12/22/19 Encounter Time: 14:51 ICD therapies have been disabled due to RV lead integrity issues. Pacemaker support remains functional. Lifevest ordered to be worn until extraction and re-implant can be done as OP in the near future. OK to DC once Lifevest is in place from an EP perspective.
--- NOTE | 2019-12-22 15:01 | CON ---
DATE OF CONSULTATION: 12/22/2019 REASON FOR CONSULTATION: ICD management and malfunction. HISTORY OF PRESENT ILLNESS: Mr. Zelaya is an 79-year-old gentleman with a history of chronic ischemic cardiomyopathy, who underwent prophylactic ICD implant initially in [address] Grossman. In 2010, he was seen to have an ICD lead fracture and underwent lead revision. In 2013, he experienced spurious ICD shocks once again from an RV lead fracture. The existing fractured RV lead was abandoned and a new defibrillator lead was placed by Dr. Watt. He has done well since that time and has not been seen to have any ventricular tachyarrhythmias requiring ICD therapy. He has been seen to have occasional supraventricular tachycardia episodes, but again not requiring antiarrhythmic therapy or intervention. He recently began to hear audible alert from his defibrillator and went to an emergency room in [place]. He was transferred here for further evaluation. His ICD has been checked. EP consultation was placed for ICD management and the alerts. Mr. Zelaya feels well. He denies any recent health issues. He has had no heart failure exacerbations or major cardiac events recently. He does maintain a very active lifestyle and has not noticed any decline in his functional status. He is left-handed. REVIEW OF SYSTEMS: A 12-point review of systems is unremarkable. PAST MEDICAL HISTORY: 1. Chronic systolic congestive heart failure with ischemic cardiomyopathy. 2. Dual-chamber ICD implant in 2005. a. RV lead fracture in 2010, status post revision by Dr. Grossman. b. Lead fracture in 2013, resulting in spurious ICD shocks. Medtronic 6947 lead abandoned and capped with new defibrillator lead placed with Dr. Watt. 3. Hypothyroidism, on replacement. 4. Hypercholesterolemia. 5. Questionable TIA in 2019. ALLERGIES: CODEINE AND IODINE CONTRAST. HOME MEDICATIONS: Include; 1. MiraLAX daily. 2. Singulair 10 mg daily. 3. Meloxicam 7.5 mg daily. 4. Synthroid 112 mcg daily. 5. Nose spray t.i.d. 6. Lasix 20 mg every two days. 7. Ezetimibe one tablet daily. 8. Digoxin 125 mcg daily. 9. Clopidogrel 75 mg daily. 10. Aspirin 325 mg daily. 11. Albuterol q.6 hours p.r.n. FAMILY HISTORY: Noncontributory. SOCIAL HISTORY: He is . Maintains an active lifestyle. Denies alcohol, tobacco, or illicit drug use. OBJECTIVE: VITAL SIGNS: A 6 feet 4 inches, 156 pounds, and BMI 19. Vital signs; temperature 97.5 degrees Fahrenheit, pulse 75, blood pressure is 134/72, respirations 16, and oxygen 94% on room air. GENERAL: The patient is alert and oriented, in no apparent distress. Resting comfortably in bed at the time of exam. HEENT: He is normocephalic and atraumatic. Sclerae anicteric. EOMs are intact. He appears his stated age, but skin is weathered from likely years of sun exposure. Oral mucosa is moist. He has adequate dentition. NECK: Supple without jugular venous distention. HEART: Rate is irregularly irregular with crisp S1 and S2. PMI nondisplaced. He has a left precordial device. Does not appear to be subpectoral anymore, but previously was documented as such with original implant site is without reaction or obvious complication. LUNGS: Clear to auscultation bilaterally without wheezes, crackles, or rhonchi. Respirations are even and unlabored with good bilateral excursion. ABDOMEN: Soft and nontender without palpable masses. EXTREMITIES: Warm and dry to touch. Well perfused without clubbing, cyanosis, or edema. NEUROLOGIC: Grossly intact and nonfocal. Gait was not assessed, but he is independent in his cares while in the hospital. DATABASE: Hematology is reviewed, it is unremarkable. Chemistry; potassium 4.4, creatinine 0.89, and magnesium 1.8. Liver enzymes within normal ranges. Otherwise, unremarkable. ICD check reveals Medtronic [address], date of implant is 08/15/2013. Atrial lead parameters are stable. There is a capped and abandoned Medtronic 6947 lead, original implant in 2010. The current connected RV lead has an impedance of zero. Sensing is adequate. Capture threshold is stable. Device does report some increase in spurious nonsustained VT or high heart rate nonsustained starting 12/19/2019. RV lead trends were not reported in this on-site transmission. I see no report of ICD being reprogrammed after this transmission. Demand atrial pacing is seen, but the patient is not dependent. RV pacing is less than 1%. Telemetry and EKG show demand atrial pacing in sinus rhythm and [place] QRS complex of 96 milliseconds, IN 136 milliseconds, and QT is [address] depression in the inferior leads. There is a 4-beat run of nonsustained ventricular tachycardia and occasional PVCs that are monomorphic. IMPRESSION: 1. Dual-chamber implantable cardioverter-defibrillator in-situ with right ventricular lead abnormality suggesting fracture requiring lead revision. 2. Ischemic cardiomyopathy, well compensated, NYHA functional class 2 status. 3. Nonsustained ventricular tachycardia. 4. Low burden premature ventricular contractions single morphology. PLAN AND RECOMMENDATIONS: Mr. Zelaya is a pleasant 79-year-old gentleman, who has had multiple RV lead fractures in the past attributed to him being left-handed and continue to maintain active lifestyle managing his property. We once again see trends with his RV lead suggesting a repeat fracture. He already has an abandoned and capped RV lead from his most recent revision in 2013. There is concern that his SVC would be occluded or may not accommodate an additional lead. I discussed this with him at length today. My recommendation would be for getting him fitted with a LifeVest for the interim allowing him to return home and plan. We will disable his implanted ICD therapies, believe pacing therapies enabled. We will make arrangements for an outpatient lead extraction replacement in the near future, likely at [facility] in [place]. We discussed the risks, benefits, and alternatives associated with lead extraction. The corded mortality with this procedure is 0.3%. This will be performed with a CV Surgery on backup. He voices understanding and wishes to proceed with scheduling in the near future. He is agreeable to wearing a LifeVest to protect from any sustained ventricular tachyarrhythmias while his ICD is nonfunctioning. Thank you for allowing me to participate in the care of the patient. Once he has a LifeVest in place and his ICD therapies have been disabled, he is okay for discharge from an EP perspective. Job ID: [id number]
[2019-12-22 18:59] VITALS: BP 139/63
--- NOTE | 2019-12-23 09:19 | DIS ---
DATE OF ADMISSION: 12/19/2019 DATE OF DISCHARGE: 12/22/2019 DISCHARGE DIAGNOSES: 1. Malfunctioning of the AICD. 2. Ventricular tachycardia. 3. Hypertension and CAD. 4. Hypothyroidism. HOSPITAL COURSE: The patient is an 79-year-old male, who initially presented to the hospital for malfunctioning of his AICD. He actually received a phone call to go into the hospital to evaluate his AICD. The patient was asymptomatic. He was seen by Cardiology and was also seen by Electrophysiology. Per EP's note, the patient has a dual-chamber implantable cardioverter-defibrillator, however, has a right lead abnormality suggesting of a fracture. Recommendation was to follow up with the EP as outpatient and probably will require replacement of his AICD. He currently has been fitted for a LifeVest and at this time he will be discharged and he will follow up with them as an outpatient. His home medications have been resumed. I have seen this patient on the day of discharge. PHYSICAL EXAMINATION: VITAL SIGNS: Temperature of 98.5, 60, 95% on room air, 139/63. GENERAL: He is awake, alert, and oriented x3. Does not appear in distress. CV: S1, S2 present. No murmurs, rubs, or gallops. Job ID: [id number]
--- NOTE | 2019-12-24 19:26 | EKG ---
Test Reason : Blood Pressure : / mmHG Vent. Rate : 073 BPM Atrial Rate : 073 BPM P-R Int : 136 ms QRS Dur : 094 ms QT Int : 380 ms P-R-T Axes : 064 064 -40 degrees QTc Int : 418 ms Normal sinus rhythm Abnormal ECG No previous ECGs available Confirmed by DR. Tsering FORRESTER MD ([id number]) on 12/24/2019 7:25:42 PM Referred By: AFFRAM Confirmed By:DR. Tsering FORRESTER MD
== END 2019-12-22 19:24 | disposition home or self-care (01) | DRG 309 ==
LOC: 2NO 17:55
PROVIDERS: ADMIT Student in an Organized Health Care Education/Training Program; ATTEND Internal Medicine
PROC: 4B02XTZ Measurement of Cardiac Defibrillator, External Approach (ICD-10-PCS; principal; 2019-12-22)
DX: T82.190A Other mechanical complication of cardiac electrode, initial encounter (principal); I47.2 Ventricular tachycardia; I50.22 Chronic systolic (congestive) heart failure; I25.10 Atherosclerotic heart disease of native coronary artery without angina pectoris; Z20.828 Contact with and (suspected) exposure to other viral communicable diseases; Y83.1 Surgical operation with implant of artificial internal device as the cause of abnormal reaction of the patient, or of later complication, without mention of misadventure at the time of the procedure; J44.9 Chronic obstructive pulmonary disease, unspecified; I08.1 Rheumatic disorders of both mitral and tricuspid valves; E89.0 Postprocedural hypothyroidism; I25.5 Ischemic cardiomyopathy; E78.5 Hyperlipidemia, unspecified; I11.0 Hypertensive heart disease with heart failure; I49.3 Ventricular premature depolarization; Z86.73 Personal history of transient ischemic attack (TIA), and cerebral infarction without residual deficits; Z87.891 Personal history of nicotine dependence; Z90.49 Acquired absence of other specified parts of digestive tract; Z95.1 Presence of aortocoronary bypass graft; Z79.899 Other long term (current) drug therapy; Z79.82 Long term (current) use of aspirin; Z79.890 Hormone replacement therapy; Z79.02 Long term (current) use of antithrombotics/antiplatelets; Z79.1 Long term (current) use of non-steroidal anti-inflammatories (NSAID); Z88.5 Allergy status to narcotic agent; Z91.041 Radiographic dye allergy status
CPT/HCPCS: 36415; 71046; 80048; 80053; 83735; 84100; 85025; 87635; 93005; 93010; 94640; J7611; U0003

== ENCOUNTER 2023-08-30 17:37 | Inpatient (IN) | payer MEDICARE, OTHER ==
[2023-08-30] MEDS ORDERED: Morphine 4 MG/ML VIAL ONE (19:00)
[2023-08-30] MEDS ORDERED: Ondansetron PF 4 MG/2 ML Vial ONE (19:00)
[2023-08-30] MEDS ORDERED: HYDROcodone/Acetaminophen 5/325 mg Tablet ONE (21:42)
[2023-08-30] MEDS ORDERED: Ipratropium/Albuterol 3 ML NEB NEB PRN (22:35)
[2023-08-30] MEDS ORDERED: Morphine 2 MG/ML VIAL SLOW IVP PRN (22:35)
[2023-08-30] MEDS ORDERED: Ondansetron PF 4 MG/2 ML Vial IVP PRN (22:35)
[2023-08-31] MEDS: Acetaminophen 325 MG TAB PO PRN (01:13)
[2023-08-31 01:36] VITALS: BMI 19.1
[2023-08-31 05:13] LABS: #Basophils 0.03 10x3/uL (0.0-0.2); %Basophils 0.2 % (0.0-1.0); %Eosinophils 2.1 % (0.0-10.0); %Lymphocytes 11.6 % (21.0-51.0); %Monocytes 9.3 % (0.0-10.0); %Neutrophils 75.8 % (42.0-75.0); Hematocrit 38.3 % (42.0-52.0); Hemoglobin 12.8 g/dL (14.0-18.0); Mean Corpuscular HGB CONC 33.4 g/dL (32.0-36.0); Mean Corpuscular Hemoglobin 32.4 pg (27.0-31.0); Mean Platelet Volume 10.2 fL (7.4-10.4); Platelet Count 236 10x3/uL (130-400); RBC Distribution Width 14.7 % (11.5-14.5); Red Blood Cell (RBC) Count 3.95 mill/uL (4.70-6.10)
[2023-08-31 05:33] LABS: Anion Gap 11 mmol/L (10-20); BUN (Urea Nitrogen) 26 mg/dL (8.4-25.7); Calc. Creatinine Clearance 48 mL/min (70-130); Calcium 9.1 mg/dL (7.8-10.44); Carbon Dioxide 24 mmol/L (23-31); Chloride 108 mmol/L (98-107); Estimated GFR 63; Glucose 98 mg/dL (83-110); Potassium 4.3 mmol/L (3.5-5.1); Sodium 139 mmol/L (136-145)
[2023-08-31] MEDS: HYDROcodone/Acetaminophen 5/325 mg Tablet PO PRN (05:53)
[2023-08-31] MEDS: Famotidine/PF 20 mg/2ml Vial SLOW IVP SCH (09:01)
[2023-08-31 11:28] LABS: Magnesium 2.1 mg/dL (1.6-2.6); Phosphorus 3.6 mg/dL (2.3-4.7)
[2023-08-31 13:41] VITALS: BMI 19.1
[2023-08-31] MEDS: Mometasone 200 MCG/Formoterol 5 MCG 120 PUFF INHALER INH SCH (18:21)
[2023-08-31] MEDS ORDERED: Non-Formulary Item 1 EACH (Amantadine Hcl [Amantadine] 100 MG Tablet) PO SCH (21:00)
[2023-08-31] MEDS ORDERED: Non-Formulary Item 1 EACH (Fluticasone Propion/Salmeterol [Advair Diskus 250/50] 1 EACH B IH SCH (21:00)
[2023-08-31] MEDS ORDERED: Non-Formulary Item 1 EACH (Multivitamin [Multivitamin] 1 EACH Tablet) PO SCH (21:00)
[2023-08-31] MEDS: Amantadine HCl 100 mg Capsule PO SCH (21:14)
[2023-08-31] MEDS: Multivit, Therapeutic 1 TAB PO SCH (21:14)
[2023-08-31] MEDS: Amiodarone 200 MG TAB PO SCH (21:15)
[2023-08-31] MEDS: Aspirin Chewable 81 MG TAB PO SCH (21:15)
[2023-08-31] MEDS: Gabapentin 100 MG CAP PO SCH (21:15)
[2023-08-31] MEDS: Tamsulosin HCl 0.4 MG CAP PO SCH (21:16)
[2023-09-01 05:39] LABS: Anion Gap 15 mmol/L (10-20); BUN (Urea Nitrogen) 25 mg/dL (8.4-25.7); Calc. Creatinine Clearance 52 mL/min (70-130); Calcium 9.2 mg/dL (7.8-10.44); Carbon Dioxide 19 mmol/L (23-31); Chloride 105 mmol/L (98-107); Estimated GFR 68; Glucose 84 mg/dL (83-110); Potassium 4.4 mmol/L (3.5-5.1); Sodium 135 mmol/L (136-145)
[2023-09-01] MEDS: Levothyroxine Sodium 112 MCG TAB PO SCH (05:40)
[2023-09-01] MEDS: Senokot S 8.6-50 MG TAB PO SCH (08:30)
[2023-09-01] MEDS: Ezetimibe 10 MG TAB PO SCH (08:31)
[2023-09-01] MEDS: Liothyronine Sodium 25 MCG TAB PO SCH (08:31)
[2023-09-01] MEDS: Clopidogrel Bisulfate 75 MG TAB PO SCH (08:31)
[2023-09-01] MEDS ORDERED: Senokot S 8.6-50 MG TAB PO SCH (09:00)
[2023-09-01] MEDS ORDERED: Ezetimibe 10 MG TAB PO SCH (09:00)
[2023-09-01] MEDS ORDERED: Levothyroxine Sodium 125 MCG TAB PO SCH (09:00)
[2023-09-03 06:11] LABS: #Basophils 0.06 10x3/uL (0.0-0.2); %Basophils 0.5 % (0.0-1.0); %Lymphocytes 20.3 % (21.0-51.0); %Monocytes 8.7 % (0.0-10.0); %Neutrophils 66.5 % (42.0-75.0); Hematocrit 42.3 % (42.0-52.0); Mean Corpuscular HGB CONC 33.1 g/dL (32.0-36.0); Mean Corpuscular Volume 93.6 fL (78.0-98.0); Mean Platelet Volume 10.4 fL (7.4-10.4); Platelet Count 283 10x3/uL (130-400); RBC Distribution Width 14.3 % (11.5-14.5); Red Blood Cell (RBC) Count 4.52 mill/uL (4.70-6.10)
[2023-09-03 06:36] LABS: Anion Gap 15 mmol/L (10-20); BUN (Urea Nitrogen) 27 mg/dL (8.4-25.7); Calc. Creatinine Clearance 49 mL/min (70-130); Calcium 9.3 mg/dL (7.8-10.44); Carbon Dioxide 17 mmol/L (23-31); Chloride 105 mmol/L (98-107); Estimated GFR 65; Glucose 105 mg/dL (83-110); Potassium 4.2 mmol/L (3.5-5.1); Sodium 133 mmol/L (136-145)
[2023-09-03 15:46] LABS: Bacteria/HPF 4+ HPF (None Seen); Bilirubin Negative (Negative); Blood, Urine 2+ (Negative); Clarity Extra Turbid (Clear); Glucose, Urine (Dipstick) Normal (Negative); Ketone, Urine Negative (Negative); Leukocyte 500 Leu/uL (Negative); Nitrite 2+ (Negative); Protein, Urine (Dipstick) 50 mg/dL (Neg-Trace); RBC/HPF 21-50 HPF (0-3); Specific Gravity, Urine 1.016 (1.002-1.036); Squamous Epithelial None Seen HPF (0-3); WBC/HPF Greater than 50 HPF (0-3)
[2023-09-04] MEDS: Senokot S 8.6-50 MG TAB PO SCH (19:54)
[2023-09-05] MEDS: Polyethylene Glycol 3350 17 GM Packet PO SCH (09:41)
[2023-09-05 20:25] VITALS: BP 103/59; TEMP 97.4
== END 2023-09-05 09:09 | disposition home or self-care (01) | DRG 552 ==
LOC: ERS 17:37 → SURG A 22:03
PROVIDERS: ADMIT Surgery; ATTEND Surgery
DX: S12.110A Anterior displaced Type II dens fracture, initial encounter for closed fracture (principal); I50.22 Chronic systolic (congestive) heart failure; W19.XXXA Unspecified fall, initial encounter; J44.9 Chronic obstructive pulmonary disease, unspecified; I11.0 Hypertensive heart disease with heart failure; I50.9 Heart failure, unspecified; E03.9 Hypothyroidism, unspecified; I25.10 Atherosclerotic heart disease of native coronary artery without angina pectoris; G20.A1 Parkinson's disease without dyskinesia, without mention of fluctuations; F17.210 Nicotine dependence, cigarettes, uncomplicated; Z88.5 Allergy status to narcotic agent; Y93.89 Activity, other specified; Y92.091 Bathroom in other non-institutional residence as the place of occurrence of the external cause; I25.2 Old myocardial infarction; Z86.73 Personal history of transient ischemic attack (TIA), and cerebral infarction without residual deficits; Z90.49 Acquired absence of other specified parts of digestive tract; Z95.1 Presence of aortocoronary bypass graft; Z91.041 Radiographic dye allergy status; Z79.899 Other long term (current) drug therapy; Z79.02 Long term (current) use of antithrombotics/antiplatelets; Z79.82 Long term (current) use of aspirin; Z79.51 Long term (current) use of inhaled steroids; Z79.890 Hormone replacement therapy; Z95.810 Presence of automatic (implantable) cardiac defibrillator
CPT/HCPCS: 36415; 71045; 80048; 81003; 81015; 83735; 84100; 85025; 93005; 96374; 96375; G0390; J2270; J2405; S0028

== ENCOUNTER 2024-01-18 01:27 | Inpatient (IN) | payer MEDICARE, OTHER ==
[2024-01-18 01:55] LABS: Hematocrit 36.1 % (42.0-52.0); Hemoglobin 11.9 g/dL (14.0-18.0); Mean Corpuscular Hemoglobin 30.7 pg (27.0-31.0); Mean Platelet Volume 10.1 fL (7.4-10.4); Platelet Count 259 10x3/uL (130-400); RBC Distribution Width 16.4 % (11.5-14.5); Red Blood Cell (RBC) Count 3.88 mill/uL (4.70-6.10)
[2024-01-18] MEDS ORDERED: Azithromycin 500 MG VIAL ONE (01:57)
[2024-01-18] MEDS ORDERED: Sodium Chloride 0.9% 100 ML ONE (01:58)
[2024-01-18] MEDS ORDERED: cefTRIAXone (ROCEPHIN) 1 GM VIAL ONE (01:58)
[2024-01-18] MEDS ORDERED: Fentanyl CADD 100 ML IV SCH (02:00)
[2024-01-18 02:14] LABS: Band 18 % (5-11); Lymphocytes 11 % (21-51); Monocytes 1 % (0-10); Neutrophil 70 % (42-75); Plasma Cells 0 % (0-0); Platelet Adequacy Comment Appears Adequate; Total Cell Count 100
[2024-01-18 02:28] LABS: Troponin I 0.019 ng/mL (< 0.028)
[2024-01-18 02:34] LABS: ALT (SGPT) 17 U/L (8-55); AST (SGOT) 29 U/L (5-34); Albumin 2.3 g/dL (3.4-4.8); Alkaline Phosphatase 117 U/L (40-110); Anion Gap 16 mmol/L (10-20); BUN (Urea Nitrogen) 22 mg/dL (8.4-25.7); Bilirubin, Total 0.8 mg/dL (0.2-1.2); Calc. Creatinine Clearance 0 mL/min (70-130); Calcium 7.7 mg/dL (7.8-10.44); Carbon Dioxide 16 mmol/L (23-31); Chloride 110 mmol/L (98-107); Estimated GFR 85; Globulin 3.2 g/dL (2.4-3.5); Glucose 94 mg/dL (83-110); Potassium 2.6 mmol/L (3.5-5.1); Protein, Total 5.5 g/dL (5.8-8.1); Sodium 139 mmol/L (136-145)
[2024-01-18 02:41] LABS: Actual Bicarbonate (HCO3a) 22.9 mEq/L (22-28); Base Excess (BEa) -3.2 mEq/L (-2.0 to +3.0); CO2 Tension 45.3 mmHg (35.0-45.0); Hematocrit-ABG 37 % (42.0-52.0); Hemoglobin (Hb) 12.5 g/dL (14.0-18.0); O2 Tension (PaO2), arterial 375.8 mmHg (> 60.0); pH, Arterial 7.322 (7.35-7.45)
[2024-01-18 02:42] LABS: ALV-art Gradient 280.575 mmHg (0-20); Analyzer IN Cardio ER; Calcium, Ionized (arterial) 1.11 mmol/L (1.12-1.30); Potassium - ABG Lab 2.53 mmol/L (3.70-5.30); Puncture Site Right Radial artery
[2024-01-18] MEDS ORDERED: Potassium Chloride 20 MEQ (100 mL) BAG ONE (02:47)
[2024-01-18 02:59] LABS: Bacteria/HPF None Seen HPF (None Seen); Bilirubin Negative (Negative); Blood, Urine Negative (Negative); CAUTI Indications for Culture Dysuria,urgency,freq; Calcium Oxalate Crystals 4+ HPF (None Seen); Clarity Extra Turbid (Clear); Glucose, Urine (Dipstick) Normal (Negative); Ketone, Urine Negative (Negative); Leukocyte Negative Leu/uL (Negative); Nitrite Negative (Negative); Protein, Urine (Dipstick) 30 mg/dL (Neg-Trace); Specific Gravity, Urine 1.021 (1.002-1.036); Squamous Epithelial None Seen HPF (0-3); WBC/HPF 0-3 HPF (0-3); pH, Urine 5.5 (5.0-9.0)
[2024-01-18 03:03] LABS: Urine Culture Reflex No No
[2024-01-18] MEDS ORDERED: Ventilator Sedation Protocol 1 EACH FS SCH (04:15)
[2024-01-18] MEDS ORDERED: Electrolyte Replacement Protocol 1 EACH FS PRN (04:18)
[2024-01-18] MEDS: methylPREDNISolone Sod Succ/PF 125 MG/2 ML VIAL IVP SCH (07:00)
[2024-01-18] MEDS: Ipratropium/Albuterol 3 ML NEB NEB SCH (08:13)
[2024-01-18] MEDS ORDERED: VANCOMYCIN IVPB PRN (09:54)
[2024-01-18] MEDS ORDERED: Propofol BOLUS 1,000 MG/100 ML VIAL IV PRN (10:30)
[2024-01-18] MEDS ORDERED: Lorazepam 2 MG/ML VIAL SLOW IVP PRN (10:30)
[2024-01-18] MEDS: Vancomycin (BATCH) 1.75 GM in Premix 1 BAG IVPB SCH (10:35)
[2024-01-18] MEDS: Cefepime 2 GM in Sodium Chloride 0.9% 100 ML IVPB SCH (10:43)
[2024-01-18] MEDS: Pantoprazole 40 MG VIAL IVP SCH (10:44)
[2024-01-18] MEDS: Potassium Chloride 20 MEQ in Premix 1 BAG IVPB SCH (10:45)
[2024-01-18] MEDS: Ezetimibe 10 MG TAB PO SCH (10:45)
[2024-01-18] MEDS: Clopidogrel Bisulfate 75 MG TAB PO SCH (10:45)
[2024-01-18] MEDS: Mometasone 100 MCG/Formoterol 5 MCG 120 PUFF INHALER INH SCH (10:50)
[2024-01-18] MEDS ORDERED: Albuterol 2.5 MG (3 mL) NEB NEB SCH (11:00)
[2024-01-18] MEDS ORDERED: Vancomycin HCl 750 MG in Sodium Chloride 0.9% 250 ML 250 ML IVPB SCH (11:00)
[2024-01-18] MEDS: Magnesium 2 GM/50 ML(in water) 2 GM in Premix 1 BAG IVPB SCH (12:21)
[2024-01-18 14:09] LABS: Calcium 7.4 mg/dL (7.8-10.44); Chloride 112 mmol/L (98-107); Glucose 137 mg/dL (83-110); Potassium 3.5 mmol/L (3.5-5.1); Sodium 138 mmol/L (136-145)
[2024-01-18 14:10] LABS: Anion Gap 13 mmol/L (10-20); BUN (Urea Nitrogen) 23 mg/dL (8.4-25.7); Calc. Creatinine Clearance 67 mL/min (70-130); Carbon Dioxide 17 mmol/L (23-31); Estimated GFR 88
[2024-01-18] MEDS: Potassium Chloride 40 MEQ in Premix 1 BAG IVPB SCH (15:12)
[2024-01-18 17:56] LABS: Potassium 3.6 mmol/L (3.5-5.1)
[2024-01-18] MEDS: Amiodarone 200 MG TAB PO SCH (20:57)
[2024-01-18] MEDS: Lactated Ringer's 1,000 ML IV SCH (21:45)
[2024-01-18] MEDS: Vancomycin HCl 750 MG in Sodium Chloride 0.9% 250 ML 250 ML IVPB SCH (23:00)
[2024-01-19] MEDS: Albumin 25% 25 GM (100 mL) BOT IVPB SCH (00:22)
[2024-01-19] MEDS: Fentanyl CADD 100 ML IV SCH (02:20)
[2024-01-19 04:24] LABS: Vancomycin, Random 18.2 ug/mL (See Comment)
[2024-01-19 04:26] LABS: ALT (SGPT) 57 U/L (8-55); AST (SGOT) 107 U/L (5-34); Albumin 2.5 g/dL (3.4-4.8); Alkaline Phosphatase 84 U/L (40-110); Anion Gap 13 mmol/L (10-20); BUN (Urea Nitrogen) 26 mg/dL (8.4-25.7); Bilirubin, Total 0.7 mg/dL (0.2-1.2); Calc. Creatinine Clearance 68 mL/min (70-130); Carbon Dioxide 19 mmol/L (23-31); Chloride 111 mmol/L (98-107); Estimated GFR 88; Globulin 2.6 g/dL (2.4-3.5); Glucose 148 mg/dL (83-110); Potassium 3.8 mmol/L (3.5-5.1); Protein, Total 5.1 g/dL (5.8-8.1); Sodium 139 mmol/L (136-145)
[2024-01-19 04:30] LABS: Hematocrit 29.9 % (42.0-52.0); Hemoglobin 9.9 g/dL (14.0-18.0); Mean Corpuscular HGB CONC 33.1 g/dL (32.0-36.0); Mean Corpuscular Hemoglobin 31.2 pg (27.0-31.0); Mean Corpuscular Volume 94.3 fL (78.0-98.0); Mean Platelet Volume 10.2 fL (7.4-10.4); Platelet Count 235 10x3/uL (130-400); RBC Distribution Width 16.6 % (11.5-14.5); Red Blood Cell (RBC) Count 3.17 mill/uL (4.70-6.10)
[2024-01-19] MEDS ORDERED: Azithromycin 500 MG in Sodium Chloride 0.9% 250 ML 250 ML IVPB SCH (05:00)
[2024-01-19] MEDS ORDERED: cefTRIAXone\\ROCEPHIN 1 GM in Sodium Chloride 0.9% 100 ML IVPB SCH (05:00)
[2024-01-19] MEDS: Levothyroxine Sodium 112 MCG TAB PO SCH (06:16)
[2024-01-19 06:50] LABS: Anisocytosis SLIGHT = 6-15 cells HPF (0-5); Band 22 % (5-11); Elliptocytes SLIGHT = 2-5 cells HPF (0-1); Lymphocytes 6 % (21-51); Macrocytosis SLIGHT = 6-15 cells HPF (0-5); Monocytes 1 % (0-10); Neutrophil 71 % (42-75); Platelet Adequacy Comment Platelets Normal; Poikilocytosis SLIGHT = 6-15 cells HPF (0-5); Polychromasia SLIGHT = 2-3 cells HPF (0-2)
[2024-01-19] MEDS: Enoxaparin 40 MG (0.4 mL) SYRINGE SC SCH (09:35)
[2024-01-19] MEDS: Midazolam HCl 2 mg/2 ml Vial ONE (12:03)
[2024-01-19] MEDS: Fentanyl BOLUS 250 ML IVPB PRN (12:22)
[2024-01-19] MEDS: fentaNYL 50 mcg/mL 1 mL Vial SLOW IVP SCH ×2 (13:34)
[2024-01-19] MEDS: Midazolam HCl 2 mg/2 ml Vial IVP SCH (13:34)
[2024-01-20 10:00] LABS: Hematocrit 29.9 % (42.0-52.0); Hemoglobin 9.8 g/dL (14.0-18.0); Mean Corpuscular HGB CONC 32.8 g/dL (32.0-36.0); Mean Corpuscular Hemoglobin 30.5 pg (27.0-31.0); Mean Corpuscular Volume 93.1 fL (78.0-98.0); Mean Platelet Volume 10.7 fL (7.4-10.4); Platelet Count 248 10x3/uL (130-400); RBC Distribution Width 16.9 % (11.5-14.5); Red Blood Cell (RBC) Count 3.21 mill/uL (4.70-6.10)
[2024-01-20 10:02] LABS: ALT (SGPT) 51 U/L (8-55); AST (SGOT) 51 U/L (5-34); Albumin 2.9 g/dL (3.4-4.8); Alkaline Phosphatase 74 U/L (40-110); Anion Gap 13 mmol/L (10-20); BUN (Urea Nitrogen) 24 mg/dL (8.4-25.7); Bilirubin, Total 0.7 mg/dL (0.2-1.2); Calc. Creatinine Clearance 81 mL/min (70-130); Calcium 8.5 mg/dL (7.8-10.44); Carbon Dioxide 20 mmol/L (23-31); Chloride 112 mmol/L (98-107); Estimated GFR 92; Globulin 2.5 g/dL (2.4-3.5); Glucose 130 mg/dL (83-110); Potassium 3.4 mmol/L (3.5-5.1); Protein, Total 5.4 g/dL (5.8-8.1); Sodium 142 mmol/L (136-145)
[2024-01-20] MEDS ORDERED: Electrolyte Replacement Protocol 1 EACH FS ONE (10:15)
[2024-01-20 10:29] LABS: Anisocytosis SLIGHT = 6-15 cells HPF (0-5); Band 11 % (5-11); Burr Cells SLIGHT = 2-5 cells HPF (0-1); Lymphocytes 1 % (21-51); Macrocytosis SLIGHT = 6-15 cells HPF (0-5); Monocytes 3 % (0-10); Neutrophil 85 % (42-75); Ovalocytes SLIGHT = 2-5 cells HPF (0-1); Platelet Adequacy Comment Platelets Normal; Polychromasia SLIGHT = 2-3 cells HPF (0-2)
[2024-01-20] MEDS: Potassium Bicarbonate/Cit Ac 20 MEQ TAB PO SCH (11:59)
[2024-01-20] MEDS: methylPREDNISolone Sod Succ 40 MG VIAL IVP SCH (20:36)
[2024-01-21 02:49] LABS: Hematocrit 33.5 % (42.0-52.0); Hemoglobin 10.9 g/dL (14.0-18.0); Mean Corpuscular HGB CONC 32.5 g/dL (32.0-36.0); Mean Corpuscular Hemoglobin 30.9 pg (27.0-31.0); Mean Corpuscular Volume 94.9 fL (78.0-98.0); Mean Platelet Volume 10.3 fL (7.4-10.4); Platelet Count 320 10x3/uL (130-400); Red Blood Cell (RBC) Count 3.53 mill/uL (4.70-6.10)
[2024-01-21 02:50] LABS: Vancomycin, Random 21.8 ug/mL (See Comment)
[2024-01-21 02:53] LABS: Anion Gap 13 mmol/L (10-20); BUN (Urea Nitrogen) 22 mg/dL (8.4-25.7); Calc. Creatinine Clearance 79 mL/min (70-130); Carbon Dioxide 23 mmol/L (23-31); Chloride 109 mmol/L (98-107); Potassium 3.8 mmol/L (3.5-5.1); Sodium 141 mmol/L (136-145)
[2024-01-21 02:54] LABS: ALT (SGPT) 43 U/L (8-55); AST (SGOT) 30 U/L (5-34); Albumin 2.8 g/dL (3.4-4.8); Alkaline Phosphatase 79 U/L (40-110); Bilirubin, Total 0.9 mg/dL (0.2-1.2); Calcium 8.7 mg/dL (7.8-10.44); Estimated GFR 92; Globulin 2.7 g/dL (2.4-3.5); Glucose 141 mg/dL (83-110); Protein, Total 5.5 g/dL (5.8-8.1)
[2024-01-21 03:33] LABS: Anisocytosis SLIGHT = 6-15 cells HPF (0-5); Band 4 % (5-11); Lymphocytes 1 % (21-51); Macrocytosis SLIGHT = 6-15 cells HPF (0-5); Monocytes 3 % (0-10); Neutrophil 92 % (42-75); Nucleated RBC (Manual Ct) 1 % (0); Platelet Adequacy Comment Platelets Normal; Polychromasia SLIGHT = 2-3 cells HPF (0-2)
[2024-01-21] MEDS: Albuterol 2.5 MG (3 mL) NEB ONE (07:40)
[2024-01-21] MEDS ORDERED: Albuterol 2.5 MG (3 mL) NEB NEB PRN (07:41)
[2024-01-21] MEDS ORDERED: Electrolyte Replacement Protocol FS PRN (09:30)
[2024-01-21] MEDS: Meropenem 1 GM in Sodium Chloride 0.9% 100 ML IVPB SCH ×2 (10:16→18:16)
[2024-01-21 12:39] VITALS: BMI 20.2
[2024-01-21] MEDS: Propofol 1,000 MG/100 ML VIAL IV PRN (14:50)
[2024-01-21] MEDS: Amiodarone 200 MG TAB PER TUBE SCH (21:20)
[2024-01-22 02:01] VITALS: BP 96/52
[2024-01-22 05:47] LABS: Hematocrit 32.2 % (42.0-52.0); Hemoglobin 10.5 g/dL (14.0-18.0); Mean Corpuscular HGB CONC 32.6 g/dL (32.0-36.0); Mean Corpuscular Hemoglobin 30.6 pg (27.0-31.0); Mean Corpuscular Volume 93.9 fL (78.0-98.0); Mean Platelet Volume 10.6 fL (7.4-10.4); Platelet Count 261 10x3/uL (130-400); RBC Distribution Width 17.1 % (11.5-14.5); Red Blood Cell (RBC) Count 3.43 mill/uL (4.70-6.10)
[2024-01-22 06:09] LABS: ALT (SGPT) 33 U/L (8-55); AST (SGOT) 25 U/L (5-34); Albumin 2.3 g/dL (3.4-4.8); Alkaline Phosphatase 79 U/L (40-110); Anion Gap 13 mmol/L (10-20); BUN (Urea Nitrogen) 20 mg/dL (8.4-25.7); Bilirubin, Total 1.2 mg/dL (0.2-1.2); Calc. Creatinine Clearance 82 mL/min (70-130); Calcium 7.8 mg/dL (7.8-10.44); Carbon Dioxide 24 mmol/L (23-31); Chloride 112 mmol/L (98-107); Estimated GFR 93; Globulin 2.6 g/dL (2.4-3.5); Glucose 143 mg/dL (83-110); Magnesium 1.6 mg/dL (1.6-2.6); Potassium 3.4 mmol/L (3.5-5.1); Protein, Total 4.9 g/dL (5.8-8.1); Sodium 146 mmol/L (136-145)
[2024-01-22 06:23] VITALS: BMI 20.2
[2024-01-22 06:31] LABS: Lymphocytes 4 % (21-51); Monocytes 3 % (0-10); Myelocyte 1 % (0-0); Neutrophil 91 % (42-75); Platelet Adequacy Comment Platelets Normal; Promyelocytes 1 % (0-0); RBC Morphology Within Normal Limits
[2024-01-22] MEDS: Levothyroxine Sodium 112 MCG TAB PER TUBE SCH (06:49)
[2024-01-22 07:42] LABS: Actual Bicarbonate (HCO3a) 29.8 mEq/L (22-28); Base Excess (BEa) 3.5 mEq/L (-2.0 to +3.0); CO2 Tension 52.8 mmHg (35.0-45.0); Calcium, Ionized (arterial) 1.22 mmol/L (1.12-1.30); Carboxyhemoglobin (COHb) 0.4 gm% (0.0-3.0); Hematocrit-ABG 34 % (42.0-52.0); Hemoglobin (Hb) 11.7 g/dL (14.0-18.0); O2 Tension (PaO2), arterial 75.4 mmHg (> 60.0); Potassium - ABG Lab 3.71 mmol/L (3.70-5.30); pH, Arterial 7.369 (7.35-7.45)
[2024-01-22 07:50] LABS: Puncture Site Right Radial artery
[2024-01-22 08:12] VITALS: TEMP 97.9
[2024-01-22] MEDS: Ezetimibe 10 MG TAB PER TUBE SCH (08:24)
[2024-01-22] MEDS: Potassium Bicarbonate/Cit Ac 20 MEQ TAB PO SCH (08:24)
[2024-01-22] MEDS: Magnesium 2 GM/50 ML(in water) 2 GM in Premix 1 BAG IVPB SCH (08:25)
[2024-01-22] MEDS: Clopidogrel Bisulfate 75 MG TAB PER TUBE SCH (08:25)
[2024-01-22] MEDS ORDERED: Vecuronium 10 MG VIAL IV PRN (09:17)
[2024-01-22] MEDS: Vecuronium 10 MG VIAL IVP PRN (09:26)
[2024-01-22] MEDS: Sodium Chloride 0.9% 1,000 ML IV SCH (10:40)
== END 2024-01-22 17:11 | disposition hospice, inpatient (51) | DRG 207 ==
LOC: ERS 01:27 → CCU 04:12
PROVIDERS: ADMIT Student in an Organized Health Care Education/Training Program; ATTEND Internal Medicine
PROC: 0T9B70Z Drainage of Bladder with Drainage Device, Via Natural or Artificial Opening (ICD-10-PCS; principal; 2024-01-18)
PROC: 5A1955Z Respiratory Ventilation, Greater than 96 Consecutive Hours (ICD-10-PCS; 2024-01-18)
PROC: 0BH17EZ Insertion of Endotracheal Airway into Trachea, Via Natural or Artificial Opening (ICD-10-PCS; 2024-01-18)
PROC: 4A133R1 Monitoring of Arterial Saturation, Peripheral, Percutaneous Approach (ICD-10-PCS; 2024-01-18)
PROC: 30233J1 Transfusion of Nonautologous Serum Albumin into Peripheral Vein, Percutaneous Approach (ICD-10-PCS; 2024-01-18)
PROC: 0BJ08ZZ Inspection of Tracheobronchial Tree, Via Natural or Artificial Opening Endoscopic (ICD-10-PCS; 2024-01-19)
DX: J96.01 Acute respiratory failure with hypoxia (principal); J18.9 Pneumonia, unspecified organism; J69.0 Pneumonitis due to inhalation of food and vomit; I50.22 Chronic systolic (congestive) heart failure; J44.1 Chronic obstructive pulmonary disease with (acute) exacerbation; E87.20 Acidosis, unspecified; R64 Cachexia; Z51.5 Encounter for palliative care; Z66 Do not resuscitate; G20.C Parkinsonism, unspecified; E87.6 Hypokalemia; E03.9 Hypothyroidism, unspecified; I25.10 Atherosclerotic heart disease of native coronary artery without angina pectoris; F17.210 Nicotine dependence, cigarettes, uncomplicated; Z68.20 Body mass index [BMI] 20.0-20.9, adult; Z95.1 Presence of aortocoronary bypass graft; Z90.49 Acquired absence of other specified parts of digestive tract; Z91.041 Radiographic dye allergy status; Z88.8 Allergy status to other drugs, medicaments and biological substances
CPT/HCPCS: 36415; 36416; 36600; 71045; 71250; 74018; 80053; 80202; 81001; 82805; 83735; 83880; 84484; 85025; 87070; 87077; 87116; 87186; 87205; 87206; 87428; 93005; 93010; 94002; 94003; 94640; 94760; J0456; J0692; J0696; J1650; J2185; J2250; J2470; J2704; J2919; J3010; J3370; J3475; J3480; J7030; J7050; J7120; J7611; J7620; P9047

== ENCOUNTER 2024-01-22 17:13 | Inpatient (IN) | payer OTHER ==
[2024-01-22] MEDS ORDERED: Morphine 4 MG/ML VIAL SLOW IVP PRN (17:29)
[2024-01-22] MEDS ORDERED: Lorazepam 2 MG/ML VIAL SLOW IVP PRN (17:30)
[2024-01-22] MEDS: Morphine 4 MG/ML VIAL SLOW IVP SCH ×2 (17:56→18:14)
[2024-01-22] MEDS: Morphine 4 MG/ML VIAL ONE (17:57)
[2024-01-22] MEDS: Lorazepam 2 MG/ML VIAL ONE (17:57)
[2024-01-22] MEDS: Lorazepam 2 MG/ML VIAL SLOW IVP SCH ×2 (17:57→19:37)
== END 2024-01-22 23:11 | disposition expired | DRG 951 ==
LOC: CCU 17:13 → T4-A 21:51
PROVIDERS: ADMIT Family Medicine; ATTEND Family Medicine
DX: Z51.5 Encounter for palliative care (principal); J96.00 Acute respiratory failure, unspecified whether with hypoxia or hypercapnia; J44.1 Chronic obstructive pulmonary disease with (acute) exacerbation; I50.22 Chronic systolic (congestive) heart failure; E87.6 Hypokalemia; Z66 Do not resuscitate; E03.9 Hypothyroidism, unspecified; G20.A1 Parkinson's disease without dyskinesia, without mention of fluctuations; R53.81 Other malaise; I25.10 Atherosclerotic heart disease of native coronary artery without angina pectoris; F17.210 Nicotine dependence, cigarettes, uncomplicated; Z88.5 Allergy status to narcotic agent; Z88.8 Allergy status to other drugs, medicaments and biological substances; Z95.1 Presence of aortocoronary bypass graft; Z90.89 Acquired absence of other organs; Z90.49 Acquired absence of other specified parts of digestive tract
CPT/HCPCS: J2060; J2272